=== PATIENT | female | born 1950 | race Caucasian/White ===

== ENCOUNTER 2017-08-19 12:28 | Emergency (ER) | payer MEDICARE ==
[2017-08-19 12:36] VITALS: BP 161/86
[2017-08-19 13:52] LABS: Urine Bacteria Absent (Absent); Urine Bilirubin Negative (Negative); Urine Glucose Negative (Negative); Urine Nitrite Negative (Negative)
[2017-08-19 13:57] LABS: Hematocrit 41 % (35-47); Hemoglobin 13.5 g/dl (12.0-16.0); Mean Corpuscular HGB Conc 33 g/dl (31-36); Mean Corpuscular Hemoglobin 31 pg (27-31); Mean Corpuscular Volume 93 fL (80-97); Mean Platelet Volume 10 um3 (7.4-10.4); Red Blood Count 4.38 10^6/ul (4.0-5.4); Red Cell Distribution Width 13 % (10.5-15); White Blood Count 5.9 10^3/ul (3.5-10.8)
[2017-08-19 14:12] LABS: ALT 5 U/L (7-52); AST 10 U/L (13-39); Albumin 4.1 g/dL (3.2-5.2); Alkaline Phosphatase 85 U/L (34-104); Anion Gap 4 mmol/L (2-11); BUN/Creatinine Ratio 9.5 (8-20); Blood Urea Nitrogen 10 mg/dL (6-24); CO2 Carbon Dioxide 27 mmol/L (22-32); Calcium 9.2 mg/dL (8.6-10.3); Chloride 108 mmol/L (101-111); EGFR Non-African American 52.1 (>60); Globulin 2.2 g/dL (2-4); Glucose 95 mg/dL (70-100); Sodium 139 mmol/L (133-145); Total Protein 6.3 g/dL (6.4-8.9)
[2017-08-19 14:40] LABS: Benzodiazepine Urine Screen Presumptive Positive (None Detect)
[2017-08-19] MEDS ORDERED: HYDROcodone/ACETAMIN 5-325 MG* 1 TAB PO ONE (15:02)
[2017-08-19 15:48] LABS: Acetaminophen < 15 mcg/mL; Alcohol < 10 mg/dL (<10); Salicylate < 2.50 mg/dL (<30)
[2017-08-19 16:04] LABS: TSH (Thyroid Stimulating Horm) 2.08 mcIU/mL (0.34-5.60)
--- NOTE | 2017-08-20 22:17 | ED ---
Sindhu Cook Alfonso scribed for Korey Beckwith MD on 08/19/17 at 1318 . Psychiatric Complaint - HPI Summary HPI Summary: This patient is a 67 year old F presenting to [facility] with a chief complaint of acute on chronic depression worse since earlier today. She saw here mental health counselor earlier today. The patient rates the pain 6/10 in severity. Symptoms aggravated by recent stress. Symptoms alleviated by seeing her pets. Patient reports crying. Patient denies loss of appetite, recent ETOH use ( history of vodka and scotch abuse), substance use, SI, and HI. She had a prior SI attempt using pills. - History Of Current Complaint Chief Complaint: EDMentalHealth Time Seen by Provider: 08/19/17 13:09 Hx Obtained From: Patient Hx Last Menstrual Period: N/A Onset/Duration: Gradual Onset, Still Present, Worse Since - earlier today Timing: Constant Character: Depressed Aggravating Factor(s): Recent Stress Alleviating Factor(s): Other - pets Associated Signs And Symptoms: Negative: Appetite Change Has Suicidal: Reports: Has Prior Attempt(s). Denies: Thoughts Has Homicidal: Denies: Thoughts - Allergies/Home Medications Allergies/Adverse Reactions: Allergies Allergy/AdvReac Type Severity Reaction Status Date / Time Gabapentin [From Neurontin] Allergy Severe "CAN'T Verified 04/26/16 12:17 REMEMBER MY OWN NAME" Valproic Acid [From Depakote] Allergy Severe PSYCHOTIC Verified 04/26/16 12:17 REACTION Venlafaxine [From Effexor] Allergy Severe URINARY Verified 04/26/16 12:17 RETENTION Fentanyl Allergy Vomiting Verified 04/26/16 12:17 PMH/Surg Hx/FS Hx/Imm Hx Endocrine/Hematology History: Denies: Hx Diabetes, Hx Thyroid Disease Cardiovascular History: Reports: Hx Hypercholesterolemia, Hx Hypertension Denies: Hx Pacemaker/ICD Respiratory History: Reports: Hx Asthma, Hx Chronic Obstructive Pulmonary Disease (COPD) GI History: Denies: Hx Ulcer History: Reports: Hx Renal Disease - abnormal gfr Denies: Hx Kidney Stones Musculoskeletal History: Reports: Hx Back Problems Denies: Hx Rheumatoid Arthritis Sensory History: Denies: Hx Hearing Aid Opthamlomology History: Denies: Hx Legally Blind EENT History: Denies: Hx Deafness Neurological History: Reports: Other Neuro Impairments/Disorders - PAIN CLINIC PT Psychiatric History: Reports: Hx Anxiety, Hx Depression, Hx Post Traumatic Stress Disorder, Hx Inpatient Treatment, Hx Community Mental Health Tx, Hx Substance Abuse, Other Psychiatric Issues/Disorders - Alcoholic-not drinking presently 11/02/15 Denies: Hx Eating Disorder, Hx Panic Disorder, Hx of Violent Episodes Against Others - Surgical History Surgery Procedure, Year, and Place: T/A Infectious Disease History: No Infectious Disease History: Denies: Hx Hepatitis, Hx Human Immunodeficiency Virus (HIV), Traveled Outside the [place] in Last 30 Days - Family History Known Family History: Positive: Other - Substance abuse - Social History Alcohol Use: Rare Alcohol Amount: sober from alcohol but recently relapsed with 0.5 pint vodka Hx Substance Use: Yes Substance Use Type: Reports: Prescribed Substance Use Comment - Amount & Last Used: oxycodone,valium Hx Tobacco Use: Yes Smoking Status (MU): Heavy Every Day Tobacco Smoker Type: Cigarettes Amount Used/How Often: 2 PPD Have You Smoked in the Last Year: Yes Review of Systems Negative: Fever, Chills Negative: Erythema Negative: Sore Throat Negative: Chest Pain Negative: Shortness Of Breath, Cough Positive: Other - Negative loss of appetite. Negative: Abdominal Pain, Vomiting , Nausea Negative: dysuria, hematuria Negative: Myalgia, Edema Negative: Rash Neurological: Other - Negative dizziness, recent ETOH use (history of vodka and scotch abuse), substance use, SI, and HI. Positive: Depressed All Other Systems Reviewed And Are Negative: Yes Physical Exam - Summary Physical Exam Summary: Constitutional: Well-developed, Well-nourished, Alert. (-) Distressed Skin: Warm, Dry HENT: Normocephalic; Atraumatic Eyes: Conjunctiva normal Neck: Musculoskeletal ROM normal neck. (-) JVD, (-) Stridor, (-) Tracheal deviation Cardio: Rhythm regular, rate normal, Heart sounds normal; Intact distal pulses; The pedal pulses are 2+ and symmetric. Radial pulses are 2+ and symmetric. (-) Murmur Pulmonary/Chest wall: Effort normal. (-) Respiratory distress, (-) Wheezes, (-) Rales Abd: Soft, (-) Tenderness, (-) Distension, (-) Guarding, (-) Rebound Musculoskeletal: (-) Edema Lymph: (-) Cervical adenopathy Neuro: Alert, Oriented x3 Psych: Mood and affect Normal Triage Information Reviewed: Yes Vital Signs On Initial Exam: Initial Vitals Temp Pulse Resp BP Pulse Ox 98 F 76 18 161/86 97 08/19/17 12:31 08/19/17 12:31 08/19/17 12:31 08/19/17 12:31 08/19/17 12:31 Vital Signs Reviewed: Yes Diagnostics - Vital Signs Vital Signs Temp Pulse Resp BP Pulse Ox 08/19/17 12:31 98 F 76 18 161/86 97 - Laboratory Lab Results: Lab Results 08/19/17 08/19/17 08/19/17 Range/Units 13:14 13:14 13:50 WBC (3.5-10.8) 10^3/ul RBC (4.0-5.4) 10^6/ul Hgb (12.0-16.0) g/dl Hct (35-47) % MCV (80-97) fL MCH (27-31) pg MCHC (31-36) g/dl RDW (10.5-15) % Plt Count (150-450) 10^3/ul MPV (7.4-10.4) um3 Neut % (Auto) (38-83) % Lymph % (Auto) (25-47) % Johnson % (Auto) (1-9) % Eos % (Auto) (0-6) % Baso % (Auto) (0-2) % Absolute Neuts (auto) (1.5-7.7) 10^3/ul Absolute Lymphs (auto) (1.0-4.8) 10^3/ul Absolute Monos (auto) (0-0.8) 10^3/ul Absolute Eos (auto) (0-0.6) 10^3/ul Absolute Basos (auto) (0-0.2) 10^3/ul Absolute Nucleated RBC 10^3/ul Nucleated RBC % Sodium 139 (133-145) mmol/L Potassium 4.0 (3.5-5.0) mmol/L Chloride 108 (101-111) mmol/L Carbon Dioxide 27 (22-32) mmol/L Anion Gap 4 (2-11) mmol/L BUN 10 (6-24) mg/dL Creatinine 1.05 H (0.51-0.95) mg/dL Est GFR ( Amer) 67.0 (>60) Est GFR (Non-Af Amer) 52.1 (>60) BUN/Creatinine Ratio 9.5 (8-20) Glucose 95 (70-100) mg/dL Calcium 9.2 (8.6-10.3) mg/dL Total Bilirubin 0.40 (0.2-1.0) mg/dL AST 10 L (13-39) U/L ALT 5 L (7-52) U/L Alkaline Phosphatase 85 (34-104) U/L Total Protein 6.3 L (6.4-8.9) g/dL Albumin 4.1 (3.2-5.2) g/dL Globulin 2.2 (2-4) g/dL Albumin/Globulin Ratio 1.9 (1-3) TSH 2.08 (0.34-5.60) mcIU/mL Urine Color Yellow Urine Appearance Cloudy Urine pH 5.0 (5-9) Ur Specific [place] 1.016 (1.010-1.030) Urine Protein Negative (Negative) Urine Ketones Negative (Negative) Urine Blood Negative (Negative) Urine Nitrate Negative (Negative) Urine Bilirubin Negative (Negative) Urine Urobilinogen Negative (Negative) Ur Leukocyte Esterase 1+ H (Negative) Urine WBC (Auto) 1+(6-10/hpf) H (Absent) Urine RBC (Auto) Trace(0-2/hpf) (Absent) Ur Squamous Epith Cells Present H (Absent) Urine Bacteria Absent (Absent) Urine Glucose Negative (Negative) Salicylates < 2.50 (<30) mg/dL Urine Opiates Screen Presumptive positive H (None Detect) Ur Barbiturates Screen None detected (None Detect) Acetaminophen < 15 mcg/mL Ur Phencyclidine Scrn None detected (None Detect) Ur Amphetamines Screen None detected (None Detect) U Benzodiazepines Scrn Presumptive positive H (None Detect) Urine Cocaine Screen None detected (None Detect) U Cannabinoids Screen None detected (None Detect) Serum Alcohol < 10 (<10) mg/dL 08/19/17 Range/Units 13:50 WBC 5.9 (3.5-10.8) 10^3/ul RBC 4.38 (4.0-5.4) 10^6/ul Hgb 13.5 (12.0-16.0) g/dl Hct 41 (35-47) % MCV 93 (80-97) fL MCH 31 (27-31) pg MCHC 33 (31-36) g/dl RDW 13 (10.5-15) % Plt Count 175 (150-450) 10^3/ul MPV 10 (7.4-10.4) um3 Neut % (Auto) 58.9 (38-83) % Lymph % (Auto) 29.6 (25-47) % Johnson % (Auto) 9.6 H (1-9) % Eos % (Auto) 1.1 (0-6) % Baso % (Auto) 0.8 (0-2) % Absolute Neuts (auto) 3.5 (1.5-7.7) 10^3/ul Absolute Lymphs (auto) 1.7 (1.0-4.8) 10^3/ul Absolute Monos (auto) 0.6 (0-0.8) 10^3/ul Absolute Eos (auto) 0.1 (0-0.6) 10^3/ul Absolute Basos (auto) 0 (0-0.2) 10^3/ul Absolute Nucleated RBC 0.01 10^3/ul Nucleated RBC % 0.1 Sodium (133-145) mmol/L Potassium (3.5-5.0) mmol/L Chloride (101-111) mmol/L Carbon Dioxide (22-32) mmol/L Anion Gap (2-11) mmol/L BUN (6-24) mg/dL Creatinine (0.51-0.95) mg/dL Est GFR ( Amer) (>60) Est GFR (Non-Af Amer) (>60) BUN/Creatinine Ratio (8-20) Glucose (70-100) mg/dL Calcium (8.6-10.3) mg/dL Total Bilirubin (0.2-1.0) mg/dL AST (13-39) U/L ALT (7-52) U/L Alkaline Phosphatase (34-104) U/L Total Protein (6.4-8.9) g/dL Albumin (3.2-5.2) g/dL Globulin (2-4) g/dL Albumin/Globulin Ratio (1-3) TSH (0.34-5.60) mcIU/mL Urine Color Urine Appearance Urine pH (5-9) Ur Specific [place] (1.010-1.030) Urine Protein (Negative) Urine Ketones (Negative) Urine Blood (Negative) Urine Nitrate (Negative) Urine Bilirubin (Negative) Urine Urobilinogen (Negative) Ur Leukocyte Esterase (Negative) Urine WBC (Auto) (Absent) Urine RBC (Auto) (Absent) Ur Squamous Epith Cells (Absent) Urine Bacteria (Absent) Urine Glucose (Negative) Salicylates (<30) mg/dL Urine Opiates Screen (None Detect) Ur Barbiturates Screen (None Detect) Acetaminophen mcg/mL Ur Phencyclidine Scrn (None Detect) Ur Amphetamines Screen (None Detect) U Benzodiazepines Scrn (None Detect) Urine Cocaine Screen (None Detect) U Cannabinoids Screen (None Detect) Serum Alcohol (<10) mg/dL Result Diagrams: 08/19/17 13:50 08/19/17 13:50 Lab Statement: Any lab studies that have been ordered have been reviewed, and results considered in the medical decision making process. Course/Dx - Course Assessment/Plan: This patient is a 67 year old F presenting to [facility] with a chief complaint of acute on chronic depression worse since earlier today. She saw here mental health counselor earlier today. The patient rates the pain 6/10 in severity. Symptoms aggravated by recent stress. Symptoms alleviated by seeing her pets. Patient reports crying. Patient denies loss of appetite, recent ETOH use (history of vodka and scotch abuse), substance use, SI, and HI. She had a prior SI attempt using pills. After [facility], patient was cleared for discharge by psych. - Differential Dx/Clinical Impression Provider Diagnosis: Suicidal ideation Discharge - Discharge Plan Condition: Stable Disposition: HOME Referrals: Luna Hernandez MD [Primary Care Provider] - The documentation as recorded by the Sindhu wick Alfonso accurately reflects the service I personally performed and the decisions made by , Korey Beckwith MD.
== END 2017-08-19 18:00 | disposition home or self-care (01) ==
LOC: ED 12:28
DX: R45.851 Suicidal ideations (principal); E78.00 Pure hypercholesterolemia, unspecified; F17.210 Nicotine dependence, cigarettes, uncomplicated
CPT/HCPCS: 36415; 80053; 80307; 80320; 80329; 81003; 81015; 84443; 85025; 87086; 99283; G0480

== ENCOUNTER 2017-09-12 09:36 | Emergency (ER) | payer MEDICARE ==
[2017-09-12 11:04] LABS: ABS Basophils 0 10^3/ul (0-0.2); ABS Eosinophils 0.1 10^3/ul (0-0.6); ABS Lymphocytes 1.6 10^3/ul (1.0-4.8); ABS Monocytes 0.8 10^3/ul (0-0.8); ABS Neutrophils 5.8 10^3/ul (1.5-7.7); ABS Nucleated RBC 0 10^3/ul; Hematocrit 39 % (35-47); Hemoglobin 13.1 g/dl (12.0-16.0); Lymphocyte % 18.8 % (25-47); Mean Corpuscular HGB Conc 34 g/dl (31-36); Mean Corpuscular Hemoglobin 32 pg (27-31); Mean Corpuscular Volume 94 fL (80-97); Mean Platelet Volume 10 um3 (7.4-10.4); Nucleated Red Blood Cells % 0.1; Platelet Count 162 10^3/ul (150-450); Red Blood Count 4.14 10^6/ul (4.0-5.4); Red Cell Distribution Width 14 % (10.5-15); White Blood Count 8.3 10^3/ul (3.5-10.8)
[2017-09-12 11:21] LABS: EGFR Non-African American 46.9 (>60)
--- NOTE | 2017-09-12 11:27 | RAD ---
Indication: Fall. Lethargy. Comparison: February 03, 2017 MRI brain. Technique: Noncontrast CT vertex of skull through foramen magnum. Report: The sulci, ventricles, and basal cisterns are normal for age. Ryan matter white matter differentiation is preserved without evidence for edema. No intra or extra axial hemorrhage, mass, or fluid collection detected. Unremarkable visualized orbital contents. Unremarkable calvarium and skull base. Unremarkable scalp. The visualized paranasal sinuses and mastoid air spaces are clear. IMPRESSION: No acute intracranial process evident. Mild involutional change commensurate with age.
--- NOTE | 2017-09-12 11:38 | RAD ---
Indication: Fall, low back pain. Comparison is made with previous exam dated April 17, 2016. 2 views of the chest including dual energy PA views demonstrate no mediastinal shift. Hyperinflated lung arreola are noted. No pleural fluid, pneumonia or pneumothorax is noted. IMPRESSION: No active cardiopulmonary disease is noted.
--- NOTE | 2017-09-12 11:41 | RAD ---
INDICATION: Trauma, low back pain. COMPARISON: Comparison is made with a prior x-ray study of the lumbar spine from October 11, 2008. TECHNIQUE: 3 views of the lumbar spine were obtained including lateral, AP and a coned-down lateral view of the lumbar sacral junction. FINDINGS: There is a mild lumbar scoliosis convex toward the right side. The vertebra are otherwise in normal alignment. No fracture is seen. There is moderate to severe degenerative disc disease at the L1-L2, L2-L3 and L4-L5 levels which has progressed from the prior study. IMPRESSION: 1. NO EVIDENCE FOR FRACTURE. 2. MODERATE TO SEVERE DEGENERATIVE DISC DISEASE.
--- NOTE | 2017-09-12 11:43 | RAD ---
INDICATION: Right hip injury. COMPARISON: Comparison is made with a prior study from July 03, 2015. TECHNIQUE: An AP view of the pelvis and frontal and lateral views of the right hip were obtained. FINDINGS: The bones are in normal alignment. No fracture is seen. There is mild bilateral osteoarthritic change in the hips. IMPRESSION: NO EVIDENCE FOR FRACTURE, IF THE PATIENT'S SYMPTOMS PERSIST RECOMMEND FOLLOW-UP IMAGING.
[2017-09-12 12:48] VITALS: BP 115/70
--- NOTE | 2017-10-02 18:40 | ED ---
Patrizia Cook Thomas, scribed for Ranjan Hopkins MD on 09/12/17 at 1048 . Complex/Multi-Sys Presentation - HPI Summary HPI Summary: The patient is a 67 year old female brought in by ambulance to the ED after she had multiple falls this week. She complains of hip pain and back pain. Her hip pain is worse with movement. She says she struck her head multiple times. She additionally complains of a cough. Her doctor recently increased her oxycodone dose. She is on Valium, oxycodone, gabapentin, Seroquel, Lisinopril, and atorvastatin. Patient denies fever and chills. - History Of Current Complaint Chief Complaint: EDWeakness Hx Obtained From: Patient Onset/Duration: Lasting Weeks - 1, Still Present Timing: Intermittent, Lasting: Severity Currently: Moderate Location: Pain At: - hip, back Aggravating Factor(s): Movement Alleviating Factor(s): None Associated Signs And Symptoms: Positive: Other - Hip pain, back pain; NEGATIVE: fever, chills - Allergies/Home Medications Allergies/Adverse Reactions: Allergies Allergy/AdvReac Type Severity Reaction Status Date / Time Gabapentin [From Neurontin] Allergy Severe "CAN'T Verified 04/26/16 12:17 REMEMBER MY OWN NAME" Valproic Acid [From Depakote] Allergy Severe PSYCHOTIC Verified 04/26/16 12:17 REACTION Venlafaxine [From Effexor] Allergy Severe URINARY Verified 04/26/16 12:17 RETENTION Fentanyl Allergy Vomiting Verified 04/26/16 12:17 PMH/Surg Hx/FS Hx/Imm Hx Previously Healthy: No Endocrine/Hematology History: Denies: Hx Diabetes, Hx Thyroid Disease Cardiovascular History: Reports: Hx Hypercholesterolemia, Hx Hypertension Denies: Hx Pacemaker/ICD Respiratory History: Reports: Hx Asthma, Hx Chronic Obstructive Pulmonary Disease (COPD) GI History: Denies: Hx Ulcer History: Reports: Hx Renal Disease - abnormal gfr Denies: Hx Kidney Stones Musculoskeletal History: Reports: Hx Back Problems Denies: Hx Rheumatoid Arthritis Sensory History: Denies: Hx Legally Blind, Hx Deafness, Hx Hearing Aid Opthamlomology History: Denies: Hx Legally Blind Neurological History: Reports: Other Neuro Impairments/Disorders - PAIN CLINIC PT Psychiatric History: Reports: Hx Anxiety, Hx Depression, Hx Post Traumatic Stress Disorder, Hx Inpatient Treatment, Hx Community Mental Health Tx, Hx Substance Abuse, Other Psychiatric Issues/Disorders - Alcoholic-not drinking presently 11/02/15 Denies: Hx Eating Disorder, Hx Panic Disorder, Hx of Violent Episodes Against Others - Surgical History Surgery Procedure, Year, and Place: T/A Infectious Disease History: No Infectious Disease History: Denies: Hx Hepatitis, Hx Human Immunodeficiency Virus (HIV), Traveled Outside the [place] in Last 30 Days - Family History Known Family History: Positive: Other - Substance abuse - Social History Alcohol Use: Rare Alcohol Amount: sober from alcohol but recently relapsed with 0.5 pint vodka Hx Substance Use: Yes Substance Use Type: Reports: Prescribed Substance Use Comment - Amount & Last Used: oxycodone,valium Hx Tobacco Use: Yes Smoking Status (MU): Heavy Every Day Tobacco Smoker Type: Cigarettes Amount Used/How Often: 2 PPD Have You Smoked in the Last Year: Yes Review of Systems Negative: Fever, Chills Positive: Other - Back pain, hip pain All Other Systems Reviewed And Are Negative: Yes Physical Exam - Summary Physical Exam Summary: Appearance: Well-appearing, Well-nourished Skin: Warm, Dry, No rash Eyes: Normal, PERRL, EOMI, sclera anicteric ENT: Normal Neck: Supple, nontender Respiratory: Clear to auscultation Cardiovascular: S1, S2, no murmur, no rub, no gallop Abdomen: Soft, nontender, no organomegaly Bowel sounds: Present Musculoskeletal: Normal, Strength/ROM Intact, no edema, pulses symmetrical Neurological: She is lethargic but arousable. She is alert and oriented. Cranial nerves II-XII WNL, follows commands, gait not tested, sensation intact to pin and light touch Psychiatric: affect normal, behavior appropriate, dressed appropriately, judgment intact Triage Information Reviewed: Yes Vital Signs On Initial Exam: Initial Vitals Temp Pulse Resp BP Pulse Ox 97.7 F 85 18 115/71 95 09/12/17 09:41 09/12/17 09:41 09/12/17 09:41 09/12/17 09:41 09/12/17 09:41 Vital Signs Reviewed: Yes - [place] Coma Scale Coma Scale Total: 15 Diagnostics - Vital Signs Vital Signs Temp Pulse Resp BP Pulse Ox 09/12/17 09:41 97.7 F 85 18 115/71 95 - Laboratory Result Diagrams: 09/12/17 10:40 09/12/17 10:40 Lab Statement: Any lab studies that have been ordered have been reviewed, and results considered in the medical decision making process. - Radiology Hip/Pelvis XR Xray Interpretation: No Acute Changes - NO EVIDENCE FOR FRACTURE, IF THE PATIENT 'S SYMPTOMS PERSIST RECOMMEND FOLLOW-UP IMAGING. Dr Hopkins has reviewed this report. Radiology Interpretation Completed By: Radiologist L-Spine XR Xray Interpretation: No Acute Changes - 1. NO EVIDENCE FOR FRACTURE. 2. MODERATE TO SEVERE DEGENERATIVE DISC DISEASE. Dr. Hopkins has reviewed this report. Radiology Interpretation Completed By: Radiologist CXR Xray Interpretation: No Acute Changes - No active cardiopulmonary disease is noted. Dr Hopkins has reviewed this report Radiology Interpretation Completed By: Radiologist - CT CT Brain CT Interpretation: No Acute Changes - No acute intracranial process evident. Mild involutional change commensurate with age. Dr Hopkins has reviewed this report and agrees. CT Interpretation Completed By: Radiologist Complex Multi-Symp Course/Dx Assessment/Plan: The patient is a 67 year old female brought in by ambulance to the ED after she had multiple falls this week. She complains of hip pain and back pain. She says she struck her head multiple times. Her doctor recently increased her oxycodone dose. She is on Valium, oxycodone, gabapentin, Seroquel , Lisinopril, and atorvastatin. Bloodwork and urine toxicology obtained. CT Brain, Hip/Pelvis XR, L-Spine XR, and CXR negative for acute process. The patient is diagnosed with narcotic and benzodiazepine abuse. The patient is instructed to follow up with primary care. - Diagnoses Provider Diagnoses: Narcotic and benzodiazepine dependency Discharge - Discharge Plan Condition: Good Disposition: HOME Patient Education Materials: Benzodiazepine Abuse (ED), Narcotic Abuse (ED) Referrals: Luna Hernandez MD [Primary Care Provider] - The documentation as recorded by the Patrizia wick Thomas accurately reflects the service I personally performed and the decisions made by , Ranjan Hopkins MD.
== END 2017-09-12 12:47 | disposition home or self-care (01) ==
LOC: ED 09:36
DX: F11.20 Opioid dependence, uncomplicated (principal); F13.20 Sedative, hypnotic or anxiolytic dependence, uncomplicated; M25.559 Pain in unspecified hip; M54.9 Dorsalgia, unspecified; F17.210 Nicotine dependence, cigarettes, uncomplicated
CPT/HCPCS: 36415; 70450; 71020; 72100; 80053; 80307; 85025; 99283

== ENCOUNTER 2020-05-26 17:54 | Inpatient (IN) ==
[2020-05-26] MEDS ORDERED: Ondansetron 4 mg VIAL 2 MG/ML 2 ml VIAL IV ONE (18:30)
[2020-05-26] MEDS ORDERED: NS 0.9% 1000 ml BAG 1,000 ML IV ONE ×2 (18:30→22:16)
[2020-05-26 19:05] LABS: Hematocrit 33 % (35-47); Hemoglobin 11.7 g/dL (12.0-16.0); Mean Corpuscular HGB Conc 35 g/dL (31-36); Mean Corpuscular Hemoglobin 32 pg (27-31); Mean Corpuscular Volume 92 fL (80-97); Mean Platelet Volume 10.5 fL (7.4-10.4); Platelet Count 145 10^3/uL (150-450); Red Blood Count 3.61 10^6 /uL (3.70-4.87); Red Cell Distribution Width 13 % (10-15); White Blood Count 15.3 10^3/uL (3.5-10.8)
[2020-05-26 19:13] LABS: INR 1.16 (0.82-1.09)
[2020-05-26 19:27] LABS: ALT 12 U/L (7-52); AST 16 U/L (13-39); Albumin 3.9 g/dL (3.2-5.2); Albumin/Globulin Ratio 1.6 (1-3); Alkaline Phosphatase 82 U/L (34-104); Anion Gap 6 mmol/L (2-11); BUN/Creatinine Ratio 11.4 (8-20); Blood Urea Nitrogen 24 mg/dL (6-24); CO2 Carbon Dioxide 25 mmol/L (22-32); Calcium 9.1 mg/dL (8.6-10.3); Chloride 97 mmol/L (101-111); EGFR African American 27.9 (>60); EGFR Non-African American 23.1 (>60); Globulin 2.5 g/dL (2-4); Glucose 129 mg/dL (70-100); Potassium 3.3 mmol/L (3.5-5.0); Sodium 128 mmol/L (135-145); Total Protein 6.4 g/dL (6.4-8.9)
[2020-05-26 19:28] LABS: Troponin I 0.01 ng/mL (<0.03)
[2020-05-26 20:09] LABS: Acetaminophen < 15 mcg/mL; Alcohol, S < 10 mg/dL (<10); Salicylate < 2.50 mg/dL (<30)
[2020-05-26 20:25] LABS: TSH Ultra Thyroid Stim Horm 7.65 mcIU/mL (0.34-5.60)
[2020-05-26 20:35] LABS: ABS Basophils 0.1 10^3/ul (0-0.2); ABS Lymphocytes 1.2 10^3/ul (1.0-4.8); ABS Monocytes 1.9 10^3/ul (0-0.8); ABS Neutrophils 12.2 10^3/ul (1.5-7.7); Lymphocyte % 8.1 %
[2020-05-26 22:37] LABS: Urine Appearance Cloudy; Urine Bilirubin Negative (Negative); Urine Blood 2+ (Negative); Urine Color Yellow; Urine Glucose Negative (Negative); Urine Ketones Negative (Negative); Urine Nitrite Negative (Negative); Urine Protein Negative (Negative); Urine Specific Gravity 1.006 (1.010-1.030); Urine Urobilinogen Negative (Negative)
[2020-05-26 22:43] LABS: Urine Bacteria 1+ (Absent); Urine Red Blood Cell Absent (Absent); Urine Squamous Epithelial Cell Present (Absent); Urine Transitional Epithelial Present (Absent); Urine White Blood Cell 3+(>20/hpf) (Absent)
[2020-05-26 22:44] LABS: Urine Benzodiazepine Screen None Detected (None Detect); Urine Cannabinoids Screen None Detected (None Detect); Urine Opiates Screen None Detected (None Detect)
[2020-05-26] MEDS ORDERED: cefTRIAXone 2 GM ADDV.VIAL 2 GM in NS 0.9% 100 ml BAG 100 ML IVPB ONE (22:59)
[2020-05-27] MEDS ORDERED: Albuterol/Ipratropium NEB.SOL (2.5/0.5 MG) 3 ML NEB.SOLN INH PRN (00:37)
[2020-05-27] MEDS ORDERED: NS 0.9% 1000 ml BAG 1,000 ML IV SCH (00:45)
[2020-05-27] MEDS ORDERED: Albuterol HFA INHALER 8 gm MDI INH PRN (02:52)
[2020-05-27] MEDS: Ondansetron 4 mg VIAL 2 MG/ML 2 ml VIAL IV PRN ×3 (03:36→11:51)
[2020-05-27] MEDS: KCL 20 MEQ/100 ML IVPREMIX 20 MEQ/100 ML BAG IV SCH ×2 (03:43→06:01)
[2020-05-27 04:18] LABS: ABS Monocytes 1.5 10^3/ul (0-0.8); ABS Neutrophils 8.8 10^3/ul (1.5-7.7); Eosinophil % 0.3 %; Hematocrit 32 % (35-47); Hemoglobin 10.8 g/dL (12.0-16.0); Lymphocyte % 9.1 %; Mean Corpuscular HGB Conc 34 g/dL (31-36); Mean Corpuscular Hemoglobin 31 pg (27-31); Mean Corpuscular Volume 92 fL (80-97); Mean Platelet Volume 10.7 fL (7.4-10.4); Platelet Count 128 10^3/uL (150-450); Red Blood Count 3.48 10^6 /uL (3.70-4.87); Red Cell Distribution Width 13 % (10-15); White Blood Count 11.4 10^3/uL (3.5-10.8)
[2020-05-27 05:15] LABS: Calcium 8.5 mg/dL (8.6-10.3); Potassium 3.5 mmol/L (3.5-5.0)
[2020-05-27 05:20] LABS: BUN/Creatinine Ratio 13.1 (8-20); EGFR African American 48.9 (>60); EGFR Non-African American 40.4 (>60)
[2020-05-27] MEDS ORDERED: Potassium Chlor 20 meq TAB.ER PO ONE ×2 (05:30→09:00)
[2020-05-27] MEDS: Heparin 5000 UNITS/ML 1 mL VIAL SUBCUT SCH ×3 (06:23→21:29)
[2020-05-27] MEDS: Fluticasone NASAL SPRAY 50MCG 16 gm SPRAY BTL INTRANASAL SCH (09:28)
[2020-05-27] MEDS ORDERED: Nicotine PATCH 14 MG/24 HR PATCH ONE (15:47)
[2020-05-27] MEDS: Nicotine PATCH 14 MG/24 HR PATCH TRANSDERM SCH (15:50)
[2020-05-27] MEDS ORDERED: cefTRIAXone 1 gm/50 mL NS BAG 1 GM/50 ML BAG IVPB SCH (21:00)
[2020-05-27] MEDS: Amoxicillin/Clavul 875/125 TAB (Augmentin 875 tab) PO SCH (21:04)
[2020-05-27] MEDS: CMCS:FluvoxaMINE 50 mg TAB (NF) PO SCH (21:10)
[2020-05-28] MEDS: Heparin 5000 UNITS/ML 1 mL VIAL SUBCUT SCH ×3 (05:44→21:57)
[2020-05-28] MEDS: Fluticasone NASAL SPRAY 50MCG 16 gm SPRAY BTL INTRANASAL SCH (09:31)
[2020-05-28] MEDS: Amoxicillin/Clavul 875/125 TAB (Augmentin 875 tab) PO SCH ×2 (09:31→21:54)
[2020-05-28] MEDS: Nicotine PATCH 14 MG/24 HR PATCH TRANSDERM SCH (10:56)
[2020-05-28] MEDS: Nystatin SUSPENSION 100,000 UNITS/ML UDC PO SCH ×2 (17:03→21:56)
[2020-05-28] MEDS: Ondansetron ODT 4 mg TAB 4 MG TAB PO PRN (17:41)
[2020-05-28] MEDS: CMCS:FluvoxaMINE 50 mg TAB (NF) PO SCH (21:55)
[2020-05-29] MEDS: Heparin 5000 UNITS/ML 1 mL VIAL SUBCUT SCH ×2 (05:44→13:58)
[2020-05-29 06:34] LABS: ABS Eosinophils 0.1 10^3/ul (0-0.6); ABS Lymphocytes 1.4 10^3/ul (1.0-4.8); ABS Monocytes 0.7 10^3/ul (0-0.8); ABS Neutrophils 2.5 10^3/ul (1.5-7.7); Hematocrit 33 % (35-47); Hemoglobin 11.4 g/dL (12.0-16.0); Lymphocyte % 29.9 %; Mean Corpuscular HGB Conc 35 g/dL (31-36); Mean Corpuscular Hemoglobin 32 pg (27-31); Mean Corpuscular Volume 92 fL (80-97); Nucleated Red Blood Cells % 0.1; Platelet Count 155 10^3/uL (150-450); Red Blood Count 3.54 10^6 /uL (3.70-4.87); Red Cell Distribution Width 13 % (10-15); White Blood Count 4.7 10^3/uL (3.5-10.8)
[2020-05-29 06:58] LABS: BUN/Creatinine Ratio 9.9 (8-20); EGFR African American 73.7 (>60); EGFR Non-African American 60.9 (>60); Potassium 3.6 mmol/L (3.5-5.0)
[2020-05-29] MEDS: Amoxicillin/Clavul 875/125 TAB (Augmentin 875 tab) PO SCH (08:31)
[2020-05-29] MEDS: Nystatin SUSPENSION 100,000 UNITS/ML UDC PO SCH ×2 (08:32→13:56)
[2020-05-29] MEDS: Nicotine PATCH 14 MG/24 HR PATCH TRANSDERM SCH (08:32)
[2020-05-29] MEDS: Fluticasone NASAL SPRAY 50MCG 16 gm SPRAY BTL INTRANASAL SCH (08:41)
[2020-05-29 11:03] VITALS: BP 116/77
[2020-05-29] MEDS: Ondansetron ODT 4 mg TAB 4 MG TAB PO PRN (12:28)
[2020-05-29 13:38] LABS: TSH Ultra Thyroid Stim Horm 2.22 mcIU/mL (0.34-5.60)
[2020-05-29 13:40] LABS: Free T4 0.91 ng/dL (0.61-1.12)
== END 2020-05-29 14:45 | disposition home or self-care (01) | DRG 92 ==
LOC: ED 17:54 → MED 05-27 00:37
PROVIDERS: ADMIT Internal Medicine; ATTEND Internal Medicine

== ENCOUNTER 2020-12-06 19:12 | Inpatient (IN) ==
[2020-12-06 20:38] LABS: Urine Appearance Cloudy; Urine Bilirubin Negative (Negative); Urine Blood Negative (Negative); Urine Color Amber; Urine Glucose Negative (Negative); Urine Ketones Trace (Negative); Urine Nitrite Negative (Negative); Urine Protein 1+(30 mg/dL) (Negative); Urine Urobilinogen Negative (Negative)
[2020-12-06 20:41] LABS: Urine Bacteria 1+ (Absent); Urine Red Blood Cell 1+(3-5/hpf) (Absent); Urine Squamous Epithelial Cell Present (Absent); Urine White Blood Cell 1+(6-10/hpf) (Absent)
[2020-12-06 21:01] LABS: Urine Benzodiazepine Screen None Detected (None Detect); Urine Cannabinoids Screen None Detected (None Detect); Urine Opiates Screen None Detected (None Detect)
[2020-12-06 21:40] LABS: ABS Eosinophils 0.1 10^3/ul (0-0.6); ABS Lymphocytes 2.5 10^3/ul (1.0-4.8); ABS Monocytes 0.8 10^3/ul (0-0.8); ABS Neutrophils 5.7 10^3/ul (1.5-7.7); Eosinophil % 1.1 %; Hematocrit 37 % (35-47); Hemoglobin 12.7 g/dL (12.0-16.0); Lymphocyte % 27.4 %; Mean Corpuscular HGB Conc 34 g/dL (31-36); Mean Corpuscular Hemoglobin 32 pg (27-31); Mean Corpuscular Volume 94 fL (80-97); Mean Platelet Volume 10.3 fL (7.4-10.4); Nucleated Red Blood Cells % 0.1; Platelet Count 157 10^3/uL (150-450); Red Blood Count 3.97 10^6 /uL (3.70-4.87); Red Cell Distribution Width 15 % (10-15); White Blood Count 9.1 10^3/uL (3.5-10.8)
[2020-12-06 21:56] LABS: ALT 7 U/L (7-52); AST 12 U/L (13-39); Albumin 3.9 g/dL (3.2-5.2); Albumin/Globulin Ratio 1.7 (1-3); Alkaline Phosphatase 67 U/L (34-104); Anion Gap 7 mmol/L (2-11); BUN/Creatinine Ratio 12.9 (8-20); Blood Urea Nitrogen 17 mg/dL (6-24); CO2 Carbon Dioxide 26 mmol/L (22-32); Calcium 9.3 mg/dL (8.6-10.3); Chloride 103 mmol/L (101-111); EGFR Non-African American 39.7 (>60); Globulin 2.3 g/dL (2-4); Glucose 103 mg/dL (70-100); Potassium 3.3 mmol/L (3.5-5.0); Sodium 136 mmol/L (135-145); Total Protein 6.2 g/dL (6.4-8.9)
[2020-12-06 22:25] LABS: Acetaminophen < 15 mcg/mL; Alcohol, S < 10 mg/dL (<10); Salicylate < 2.50 mg/dL (<30)
[2020-12-06] MEDS ORDERED: Sulfamethox/Trimethoprim DS TAB 800/160 mg PO ONE (22:38)
[2020-12-06 22:41] LABS: TSH Ultra Thyroid Stim Horm 2.91 mcIU/mL (0.34-5.60)
[2020-12-07] MEDS ORDERED: Al Hydrox/Mg Hydrox/Simet LIQ 30 ML UDC PO PRN (02:41)
[2020-12-07] MEDS ORDERED: Albuterol HFA INHALER 8 gm MDI INH PRN (02:43)
[2020-12-07] MEDS ORDERED: Nicotine GUM 2MG FRUIT FLAVOR PO PRN (03:00)
[2020-12-07] MEDS: Nicotine PATCH 14 MG/24 HR PATCH TRANSDERM SCH (08:21)
[2020-12-07] MEDS: Fluticasone NASAL SPRAY 50MCG 16 gm SPRAY BTL INTRANASAL SCH (08:22)
[2020-12-07] MEDS: Vitamin THERAPEUTIC TAB PO SCH (08:23)
[2020-12-07] MEDS ORDERED: Mometasone/Formoter 200/5 MDI INH SCH (09:00)
[2020-12-07] MEDS: Nicotine Lozenge mini 4 MG LOZNG.MINI MT PRN ×2 (12:24→16:36)
[2020-12-07] MEDS: FLUVOXAMINE 50 MG PO SCH ×2 (12:24→20:10)
[2020-12-07] MEDS: Senna TAB 8.6 mg TAB PO PRN (12:24)
[2020-12-07] MEDS: Albuterol HFA INHALER 8 gm MDI INH PRN ×2 (12:25→20:23)
[2020-12-07] MEDS: Nicotine PATCH 21 MG/24 HR PATCH TRANSDERM SCH (12:31)
[2020-12-07] MEDS: Nicotine GUM 4MG FRUIT FLAVOR PO PRN ×3 (15:22→20:31)
[2020-12-07] MEDS: Sulfamethox/Trimethoprim DS TAB 800/160 mg PO SCH (20:14)
[2020-12-07] MEDS: RINSE MT PRN (20:19)
[2020-12-07] MEDS: Magnesium Hydroxide LIQ 30 ML UDC PO PRN (20:19)
[2020-12-07] MEDS ORDERED: CMCS:FluvoxaMINE 50 mg TAB (NF) PO SCH (21:00)
[2020-12-08 08:21] LABS: HDL Cholesterol 55.9 mg/dL
[2020-12-08] MEDS: Vitamin THERAPEUTIC TAB PO SCH (11:10)
[2020-12-08] MEDS: Fluticasone NASAL SPRAY 50MCG 16 gm SPRAY BTL INTRANASAL SCH (11:11)
[2020-12-08] MEDS: Nicotine PATCH 21 MG/24 HR PATCH TRANSDERM SCH (11:12)
[2020-12-08] MEDS: FLUVOXAMINE 50 MG PO SCH ×2 (11:12→20:55)
[2020-12-08] MEDS: Sulfamethox/Trimethoprim DS TAB 800/160 mg PO SCH ×2 (11:12→20:59)
[2020-12-08] MEDS: PTO:Fluticasone/Vilanterol MDI(NF) 200/25 MDI INH SCH (11:13)
[2020-12-08] MEDS: Albuterol HFA INHALER 8 gm MDI INH PRN ×3 (11:14→21:00)
[2020-12-08] MEDS: Nicotine PATCH 14 MG/24 HR PATCH TRANSDERM SCH (11:16)
[2020-12-08] MEDS: Dextran 70/Hypromellose Tears Eye Drops 15 ml BTL (for Artificials Tears) BOTH EYES PRN ×2 (11:17→21:05)
[2020-12-08] MEDS: Nicotine GUM 4MG FRUIT FLAVOR PO PRN ×2 (16:24→21:05)
[2020-12-08] MEDS: Senna TAB 8.6 mg TAB PO PRN (20:59)
[2020-12-08] MEDS: RINSE MT PRN (21:05)
[2020-12-09] MEDS: Nicotine PATCH 14 MG/24 HR PATCH TRANSDERM SCH (10:02)
[2020-12-09] MEDS: Vitamin THERAPEUTIC TAB PO SCH (10:03)
[2020-12-09] MEDS: Fluticasone NASAL SPRAY 50MCG 16 gm SPRAY BTL INTRANASAL SCH (10:04)
[2020-12-09] MEDS: FLUVOXAMINE 50 MG PO SCH ×2 (10:04→21:00)
[2020-12-09] MEDS: PTO:Fluticasone/Vilanterol MDI(NF) 200/25 MDI INH SCH (10:04)
[2020-12-09] MEDS: Albuterol HFA INHALER 8 gm MDI INH PRN ×2 (10:05→15:53)
[2020-12-09] MEDS: Sulfamethox/Trimethoprim DS TAB 800/160 mg PO SCH ×2 (10:05→21:03)
[2020-12-09] MEDS: Nicotine PATCH 21 MG/24 HR PATCH TRANSDERM SCH (10:06)
[2020-12-09] MEDS: Nicotine GUM 4MG FRUIT FLAVOR PO PRN ×2 (12:27→15:10)
[2020-12-09] MEDS: Magnesium Hydroxide LIQ 30 ML UDC PO PRN ×2 (15:10→22:18)
[2020-12-09] MEDS: Dextran 70/Hypromellose Tears Eye Drops 15 ml BTL (for Artificials Tears) BOTH EYES PRN (15:53)
[2020-12-09] MEDS: Nicotine Lozenge mini 4 MG LOZNG.MINI MT PRN (15:55)
[2020-12-09] MEDS: RINSE MT PRN (16:32)
[2020-12-09] MEDS: Senna TAB 8.6 mg TAB PO PRN (22:18)
[2020-12-10] MEDS: Albuterol HFA INHALER 8 gm MDI INH PRN ×3 (01:10→16:06)
[2020-12-10] MEDS: Nicotine GUM 4MG FRUIT FLAVOR PO PRN ×5 (01:13→20:25)
[2020-12-10] MEDS: Nicotine PATCH 21 MG/24 HR PATCH TRANSDERM SCH (10:48)
[2020-12-10] MEDS: Vitamin THERAPEUTIC TAB PO SCH (10:49)
[2020-12-10] MEDS: Nicotine PATCH 14 MG/24 HR PATCH TRANSDERM SCH (10:50)
[2020-12-10] MEDS: Sulfamethox/Trimethoprim DS TAB 800/160 mg PO SCH ×2 (10:52→20:17)
[2020-12-10] MEDS: Fluticasone NASAL SPRAY 50MCG 16 gm SPRAY BTL INTRANASAL SCH (10:52)
[2020-12-10] MEDS: PTO:Fluticasone/Vilanterol MDI(NF) 200/25 MDI INH SCH (10:53)
[2020-12-10] MEDS: FLUVOXAMINE 50 MG PO SCH ×2 (10:54→20:11)
[2020-12-10] MEDS: Senna TAB 8.6 mg TAB PO PRN ×2 (10:56→21:37)
[2020-12-10] MEDS: Magnesium Hydroxide LIQ 30 ML UDC PO PRN ×2 (16:11→22:49)
[2020-12-10] MEDS: Nicotine Lozenge mini 4 MG LOZNG.MINI MT PRN (17:13)
[2020-12-11] MEDS: FLUVOXAMINE 50 MG PO SCH ×2 (08:16→20:03)
[2020-12-11] MEDS: Sulfamethox/Trimethoprim DS TAB 800/160 mg PO SCH ×2 (08:19→20:04)
[2020-12-11] MEDS: Nicotine PATCH 21 MG/24 HR PATCH TRANSDERM SCH (08:21)
[2020-12-11] MEDS: Fluticasone NASAL SPRAY 50MCG 16 gm SPRAY BTL INTRANASAL SCH (08:22)
[2020-12-11] MEDS: PTO:Fluticasone/Vilanterol MDI(NF) 200/25 MDI INH SCH ×2 (08:22→14:32)
[2020-12-11] MEDS: Albuterol HFA INHALER 8 gm MDI INH PRN ×3 (08:22→19:54)
[2020-12-11] MEDS: Vitamin THERAPEUTIC TAB PO SCH (08:23)
[2020-12-11] MEDS: Nicotine PATCH 14 MG/24 HR PATCH TRANSDERM SCH (08:23)
[2020-12-11] MEDS: Nicotine GUM 4MG FRUIT FLAVOR PO PRN ×4 (13:16→22:31)
[2020-12-11] MEDS: Magnesium Hydroxide LIQ 30 ML UDC PO PRN (13:17)
[2020-12-11] MEDS: Nicotine Lozenge mini 4 MG LOZNG.MINI MT PRN (14:32)
[2020-12-11] MEDS: RINSE MT PRN (15:11)
[2020-12-11] MEDS ORDERED: Albuterol 2.5mg/3 ml (0.083%) NEB.SOLN INH PRN (15:30)
[2020-12-11] MEDS: Senna TAB 8.6 mg TAB PO PRN (20:34)
[2020-12-12] MEDS: Magnesium Hydroxide LIQ 30 ML UDC PO PRN ×2 (02:55→09:05)
[2020-12-12] MEDS: Nicotine GUM 4MG FRUIT FLAVOR PO PRN ×4 (06:25→20:15)
[2020-12-12] MEDS: Vitamin THERAPEUTIC TAB PO SCH (09:06)
[2020-12-12] MEDS: Sulfamethox/Trimethoprim DS TAB 800/160 mg PO SCH ×2 (09:06→20:09)
[2020-12-12] MEDS: FLUVOXAMINE 50 MG PO SCH ×2 (09:08→20:06)
[2020-12-12] MEDS: Fluticasone NASAL SPRAY 50MCG 16 gm SPRAY BTL INTRANASAL SCH (09:08)
[2020-12-12] MEDS: Senna TAB 8.6 mg TAB PO PRN (09:09)
[2020-12-12] MEDS: Albuterol HFA INHALER 8 gm MDI INH PRN ×3 (09:09→16:07)
[2020-12-12] MEDS: PTO:Fluticasone/Vilanterol MDI(NF) 200/25 MDI INH SCH (09:09)
[2020-12-12] MEDS: Nicotine PATCH 21 MG/24 HR PATCH TRANSDERM SCH (09:12)
[2020-12-12] MEDS: Nicotine PATCH 14 MG/24 HR PATCH TRANSDERM SCH (09:13)
[2020-12-12] MEDS ORDERED: Magnesium Hydroxide LIQ 30 ML UDC PO PRN (10:16)
[2020-12-12] MEDS: Nicotine Lozenge mini 4 MG LOZNG.MINI MT PRN (13:25)
[2020-12-12] MEDS: RINSE MT PRN (20:17)
[2020-12-13] MEDS: Albuterol HFA INHALER 8 gm MDI INH PRN (09:42)
[2020-12-13] MEDS: Sulfamethox/Trimethoprim DS TAB 800/160 mg PO SCH (09:43)
[2020-12-13] MEDS: FLUVOXAMINE 50 MG PO SCH (09:43)
[2020-12-13] MEDS: Vitamin THERAPEUTIC TAB PO SCH (09:43)
[2020-12-13] MEDS: Nicotine PATCH 21 MG/24 HR PATCH TRANSDERM SCH (09:45)
[2020-12-13] MEDS: Fluticasone NASAL SPRAY 50MCG 16 gm SPRAY BTL INTRANASAL SCH (09:46)
[2020-12-13] MEDS: PTO:Fluticasone/Vilanterol MDI(NF) 200/25 MDI INH SCH (09:46)
[2020-12-13] MEDS: Senna TAB 8.6 mg TAB PO PRN (09:47)
[2020-12-13] MEDS: Nicotine GUM 4MG FRUIT FLAVOR PO PRN (14:59)
[2020-12-13 18:00] VITALS: BP 104/71
== END 2020-12-13 19:05 | disposition home or self-care (01) | DRG 885 ==
LOC: ED 19:12 → BSU 12-07 00:24
PROVIDERS: ADMIT Psychiatry & Neurology Psychiatry; ATTEND Psychiatry & Neurology Psychiatry

== ENCOUNTER 2024-08-11 16:36 | Observation (INO) ==
[2024-08-11 17:31] LABS: ABS Eosinophils 0.1 10^3/uL (0.0-0.5); ABS Lymphocytes 1.3 10^3/uL (1.0-4.8); ABS Monocytes 0.5 10^3/uL (0.0-0.9); ABS Neutrophils 2.9 10^3/uL (1.5-7.6); ABS Nucleated RBC 0.01 10^3/ul; Eosinophil % 1.1 %; Hematocrit 36.3 % (35-45); Hemoglobin 12.2 g/dL (11.5-14.3); Lymphocyte % 27.1 %; Mean Corpuscular Hemoglobin 31.7 pg (27-33); Mean Corpuscular Hgb Conc 33.5 g/dL (31-36); Mean Corpuscular Volume 94.7 fL (80-97); Mean Platelet Volume 9.3 fL (7.5-11.2); Nucleated Red Blood Cells % 0.2 %/100WBC (0.0-0.8); Platelet Count 156 10^3/uL (150-450); Red Blood Count 3.84 10^6/uL (3.63-4.92); Red Cell Distribution Width 13.5 % (12-17); White Blood Count 4.7 10^3/uL (3.8-11.8)
[2024-08-11 17:39] LABS: INR 1.08 (0.85-1.14)
[2024-08-11] MEDS: Nitro 2% OINT (Nitroglycerin) 1 INCH/PAK TOPICAL ONE (17:41)
[2024-08-11] MEDS: Metoprolol Tartrate 5 mg VIAL 5 ml VIAL (1 mg/ml) IV ONE (17:41)
[2024-08-11 17:53] LABS: High Sens Troponin Baseline 11 pg/mL (<15)
[2024-08-11] MEDS ORDERED: Heparin 5000 UNITS/ML 1 mL VIAL IV SCH (18:00)
[2024-08-11 18:24] LABS: ALT 16 U/L (7-52); AST 17 U/L (13-39); Albumin 4.4 g/dL (3.2-5.2); Albumin/Globulin Ratio 2.8 (1-3); Alkaline Phosphatase 86 U/L (35-149); Anion Gap 4 mmol/L (2-16); Blood Urea Nitrogen 7 mg/dL (6-24); CO2 Carbon Dioxide 31 mmol/L (22-32); Calcium 9.2 mg/dL (8.6-10.3); Chloride 101 mmol/L (101-111); Creatinine, Serum 0.71 mg/dL (0.51-0.95); Globulin 1.6 g/dL (2-4); Glucose 79 mg/dL (70-100); Iron 65 ug/dL (50-212); Potassium 3.8 mmol/L (3.5-5.0); Sodium 136 mmol/L (135-145); Total Bilirubin 0.5 mg/dL (0.2-1.0); eGFR CKD-EPI 88.6 (>60)
[2024-08-11] MEDS ORDERED: Sulfur Hexaflouride MICROSPHR 25 MG VIAL IV PRN (18:38)
[2024-08-11] MEDS: Heparin DRIP 25,000 UNITS BAG 25,000 UNITS/250 ML BAG IV SCH (18:46)
[2024-08-11 19:14] LABS: % Iron Saturation 24 % (15-55); .Transferrin 195 mg/dL (203-362); C Reactive Protein < 1.00 mg/L (<8.01); Magnesium 1.8 mg/dL (1.9-2.7); Total Iron Binding Capacity 273 mcg/dL (250-450); Unsaturated Iron Binding 208 ug/dL
[2024-08-11 19:34] LABS: Ferritin 147.9 ng/mL (11-307)
[2024-08-11 19:35] LABS: High Sensitivity Troponin 1 Hr 12 pg/mL (<15)
[2024-08-11] MEDS: Iohexol 350 (CONTRAST) 500 ML MDV IV ONE (19:38)
[2024-08-11 20:12] LABS: Erythrocyte Sed Rate 1 mm/Hr (0-29)
[2024-08-11 20:22] LABS: TSH Ultra Thyroid Stim Horm 0.71 mcIU/mL (0.34-5.60)
[2024-08-11] MEDS: Magnesium Sulfate 2 gm BAG 2 GM/50 ML BAG IVPB ONE (20:35)
[2024-08-11 21:02] LABS: Urine Appearance Clear; Urine Bilirubin Negative (Negative); Urine Blood Negative (Negative); Urine Color Light-Yellow; Urine Glucose Negative (Negative); Urine Ketones Negative (Negative); Urine Nitrite Negative (Negative); Urine Protein Negative (Negative); Urine Specific Gravity 1.009 (1.002-1.030); Urine Urobilinogen Negative (Negative); Urine pH 7.5 (5.0-8.0)
[2024-08-11] MEDS: Potassium Chlor 20 meq TAB.ER PO ONE (21:41)
[2024-08-11] MEDS: Magnesium Sulfate IV 1GM/100ML 1 GM/100 ML BAG IV ONE (21:41)
[2024-08-12] MEDS: Nicotine PATCH 14 MG/24 HR PATCH TRANSDERM SCH (00:05)
[2024-08-12] MEDS: fentaNYL PATCH 25 MCG/HR 1 PATCH TRANSDERM SCH (00:06)
[2024-08-12] MEDS: Enoxaparin 40 MG/0.4 ML SYR SUBCUT SCH (00:14)
[2024-08-12] MEDS: Albuterol HFA INHALER 8 gm MDI INH PRN (01:32)
[2024-08-12 06:35] LABS: Hematocrit 33.1 % (35-45); Hemoglobin 11.3 g/dL (11.5-14.3); Mean Corpuscular Hemoglobin 32.2 pg (27-33); Mean Corpuscular Volume 94.7 fL (80-97); Platelet Count 145 10^3/uL (150-450); Red Cell Distribution Width 13.6 % (12-17); White Blood Count 4.9 10^3/uL (3.8-11.8)
[2024-08-12 06:50] LABS: Albumin 3.7 g/dL (3.2-5.2); Albumin/Globulin Ratio 2.6 (1-3); Calcium 8.7 mg/dL (8.6-10.3); Creatinine, Serum 0.74 mg/dL (0.51-0.95); Globulin 1.4 g/dL (2-4); Indirect Bilirubin 0.3 mg/dL (0.3-1.0); Magnesium 2.3 mg/dL (1.9-2.7); Potassium 4.6 mmol/L (3.5-5.0); Total Bilirubin 0.3 mg/dL (0.2-1.0); Total Protein 5.1 g/dL (6.4-8.9); eGFR CKD-EPI 84.3 (>60)
[2024-08-12] MEDS: fentaNYL Patch Check Q Shift NOTE FOLLOW UP SCH (07:15)
[2024-08-12] MEDS: guaiFENesin 100 mg/5 ml LIQ unit dose cup PO PRN (09:40)
[2024-08-12] MEDS: Fluticasone NASAL SPRAY 50MCG 16 gm SPRAY BTL INTRANASAL SCH (09:43)
[2024-08-12] MEDS: FLUTICAS/UMECLI/VILANT 200-62.5-25 MDI (NF) INH SCH (11:29)
[2024-08-12] MEDS ORDERED: Ondansetron ODT 4 mg TAB 4 MG TAB SL PRN (11:49)
[2024-08-12] MEDS: Ondansetron 4 mg VIAL 2 MG/ML 2 ml VIAL IV ONE (13:22)
[2024-08-12] MEDS: Senna TAB 8.6 mg TAB PO PRN (17:52)
[2024-08-12] MEDS: DOXEPIN 6 MG PO SCH (20:10)
[2024-08-13 06:33] LABS: ABS Eosinophils 0.1 10^3/uL (0.0-0.5); ABS Lymphocytes 1.8 10^3/uL (1.0-4.8); ABS Monocytes 0.6 10^3/uL (0.0-0.9); ABS Neutrophils 2.2 10^3/uL (1.5-7.6); ABS Nucleated RBC 0.01 10^3/ul; Eosinophil % 2.4 %; Hematocrit 35.9 % (35-45); Lymphocyte % 38.1 %; Mean Corpuscular Hemoglobin 31.8 pg (27-33); Mean Corpuscular Hgb Conc 33.5 g/dL (31-36); Mean Corpuscular Volume 94.8 fL (80-97); Mean Platelet Volume 9.5 fL (7.5-11.2); Nucleated Red Blood Cells % 0.2 %/100WBC (0.0-0.8); Platelet Count 158 10^3/uL (150-450); Red Blood Count 3.79 10^6/uL (3.63-4.92); Red Cell Distribution Width 13.6 % (12-17); White Blood Count 4.7 10^3/uL (3.8-11.8)
[2024-08-13] MEDS: Polyethylene Glycol 3350 17 GM PACKET PO SCH (08:33)
[2024-08-13] MEDS ORDERED: Aminophylline 25 MG/ML VIAL ONE (09:31)
[2024-08-13] MEDS ORDERED: Regadenoson 0.4 MG/5 ML SYRINGE ONE (09:31)
[2024-08-13] MEDS ORDERED: Magic MouthWash1-BEN/MAAL/LIDO 180 ML BTL SWISH SPIT PRN (11:32)
[2024-08-13 14:03] VITALS: BP 151/74
== END 2024-08-13 15:25 | disposition home or self-care (01) ==
LOC: ED 16:36 → EDHOLD 16:36 → SUATTDRO 19:57 → EDHOLD 22:16 → MEDTELE 22:49
PROVIDERS: ADMIT Internal Medicine; ATTEND Student in an Organized Health Care Education/Training Program